=== PATIENT | female | born 1995 | race Two or more races ===

== ENCOUNTER 2024-08-03 11:26 | Emergency (ER) | payer BC, SELFPAY ==
[2024-08-03 11:33] VITALS: BP 136/91; PULSE 89; RESP 18; TEMP 36.7; O2SAT 97
--- NOTE | 2024-08-03 11:42 | PD.EDADULT ---
ED General RME/HPI General Chief complaint: General Adult/Misc Complain Stated complaint: BALL ON R) BUTT, DRAINING PUS, PAINFUL Time Seen by Provider: 08/03/24 11:37 Source: patient Arrival date/time: 08/03/24 11:26 Mode of arrival: ambulatory Limitations: no limitations RME / HPI RME / HPI narrative: 29-year-old female with no past medical history is here today with swelling at the right buttock. She states she received an injection just over a month ago and had firm swelling since. She denies any fevers or chills. Has no abdominal pain, nausea, vomiting. She has no urinary complaints. She states that she had some purulent discharge some weeks ago but has since resolved. She has no primary care provider. She has not been evaluated for this before. She has no other acute complaints or concerns. Related Data Previous Rx's ?Medication ?Instructions ?Recorded sulfamethoxazole 800 1 tab PO BID #14 tabs 08/03/24 mg-trimethoprim 160 mg tablet (Bactrim DS) Allergies Allergy/AdvReac Type Severity Reaction Status Date / Time No Known Allergies Allergy Verified 08/03/24 11:28 Review of Systems Review of Systems Systems Reviewed: All systems reviewed, normal except as documented ED Exam General Limitations: Present no limitations General appearance: Present alert and in no apparent distress Head Head exam: Present atraumatic Eye Eye exam: Present normal appearance, PERRL and EOMI ENT ENT exam: Present normal exam, normal oropharynx and mucous membranes moist Neck Neck exam: Present normal inspection, full ROM and trachea midline Chest Chest inspection: Present normal inspection and symmetric chest wall rise Respiratory Respiratory exam: Present normal lung sounds bilaterally Cardiovascular Cardiovascular exam: Present regular rate, normal rhythm and normal heart sounds Abdominal Exam Abdominal exam: Present soft and normal bowel sounds Extremities Exam Extremities exam: Present normal inspection and full ROM Back Exam Back exam: Present normal inspection and full ROM Neurological Exam Neurological exam: Present alert, oriented X3 and CN II-XII intact Psychiatric Psychiatric exam: Present normal affect and normal mood Skin Skin exam: Present warm, dry, intact, normal color and other (Exam performed with female NAIL MAKING MACHINE SETTER present. There is mild firmness that is approximately 2 cm x 3 cm at the right buttock. There is no warmth or open wounds. There is no fluctuance or drainage. Bedside ultrasound did not reveal any pocket of fluid collection.) Course Quality Measures none Vital Signs Vital signs: Vital Signs Temperature 98.1 F 08/03/24 11:33 Pulse Rate 89 08/03/24 11:33 Respiratory Rate 18 08/03/24 11:33 Blood Pressure 136/91 H 08/03/24 11:33 Pulse Oximetry (%) 97 08/03/24 11:33 Oxygen Delivery Method Room Air 08/03/24 11:33 Discharge Plan Plan Patient Disposition: HOME (Self Care) Patient condition on transfer: Stable Prescriptions/Referrals Prescriptions/Med Rec: New sulfamethoxazole-trimethoprim [Bactrim DS] 800-160 mg tablet 1 tab PO BID Qty: 14 0RF Problem List Clinical Impression: Hematoma, Cellulitis Patient/Caregiver Discharge Instructions Education Materials: ED Cellulitis, ED Hematoma Additional Instructions: Your exam is consistent with a hematoma. This will resolve slowly over time. Apply frequent warm compress. Use Tylenol and ibuprofen as needed for comfort. We are placing on prophylactic antibiotics. Follow-up in clinic as needed. Return here for any worsening or emergent changes. Print Language: Ecuadorean Stand Alone Forms: [employer] Info., Patient Portal Info Letter MDM Narrative [facility] hospital course: 21-year-old female with no past medical history is here today with falling at the right buttock after she had an injection just over a month ago. On exam, patient has no purulent drainage or evidence of abscess. Suspect likely ongoing hematoma. This discussed with patient. She will apply frequent warm compress. We will provide a short course of prophylactic antibiotics. She will follow-up as needed for any worsening or emergent changes. Clinical Information Provided by patient Lab Interpretation Labs: none Imaging Imaging interpretation: none Medication Administration(s) none Diagnosis Differential diagnosis: Hematoma, cellulitis, abscess Most likely dx, and/or detailed dx discussion: Hematoma Dispositon Disposition: Discharge Home
== END 2024-08-03 11:52 | disposition home or self-care (01) ==
LOC: SERX 11:59
PROVIDERS: Emergency Provider Family Medicine
DX: L03.317 Cellulitis of buttock (principal); M79.81 Nontraumatic hematoma of soft tissue; T50.905A Adverse effect of unspecified drugs, medicaments and biological substances, initial encounter
CPT/HCPCS: 99283

== ENCOUNTER 2024-08-09 10:42 | Emergency (ER) | payer BC, SELFPAY ==
[2024-08-09 10:42] VITALS: BMI 39.3
[2024-08-09 11:25] VITALS: BP 145/85; PULSE 84; RESP 18; TEMP 36.7; O2SAT 97
--- NOTE | 2024-08-09 11:42 | EDNOTE_ITS ---
ED Skin Abcess FB-RME/HPI General Chief complaint: Skin/Abscess/Foreign Body Stated complaint: CELLULITIS Time Seen by Provider: 08/09/24 10:52 Arrival date/time: 08/09/24 10:42 This is a 29-year-old female that comes into the emergency room with complaints of right buttock pain possible abscess. Patient was seen here about a week ago and was diagnosed with cellulitis and told to take the antibiotics last visit patient had a bedside ultrasound that did not show any fluctuance or any fluid. Patient states that the swelling around the area is better along with the erythema was better but she still having pain to the right buttock area. Related Data Previous Rx's ?Medication ?Instructions ?Recorded sulfamethoxazole 800 1 tab PO BID #14 tabs mg-trimethoprim 160 mg tablet (Bactrim DS) doxycycline hyclate 100 mg tablet 100 mg PO BID #14 ta bs 08/09/24 hydrocodone 5 mg-acetaminophen 325 1 tab PO Q6H PRN pa in #14 tabs 08/09/24 mg tablet ibuprofen 800 mg tablet 800 mg PO Q6H PRN pain #20 t abs 08/09/24 ondansetron 4 mg disintegrating 4 mg PO Q6H PRN nausea and 08/09/24 tablet vomiting #14 tabs Allergies Allergy/AdvReac Type Severity Reaction Status Date / Time No Known Allergies Allergy Verified 08/11/24 12:43 Review of Systems Review of Systems Systems Reviewed: All systems reviewed, normal except as documented Past Medical History Social History SMOKING STATUS: Never smoker ED Exam Narrative Physical exam: VITAL SIGNS: Reviewed. GENERAL APPEARANCE: Alert and interactive, follows commands, no acute distress HEAD AND FACE: Non-traumatic. ENT: PERRL, conjuctiva pink and clear, eyelid no trauma, Mucous membrane moist. NECK: Supple, nontender, no nuchal rigidity. CHEST: No tenderness, no crepitus, no paradoxical movement, no retractions. LUNGS: breathing even and unlabored HEART: Regular rate, cap refill less than 2 seconds ABDOMEN: Soft, nondistended, no guarding, nontender NEUROLOGICAL: Gross motor function intact sensory function intact, Appropriate for age. MUSCULOSKELETAL: low back nontender, full range of motion. EXTREMITIES: No redness no swelling no skin breakdown on bilateral foot and leg. Distal neurovascular status intact bilateral foot SKIN: Color pink, dry, erythema to mid right buttuck, erythemic with areas of induration Course Quality Measures none Orders Category Date Time Status US soft tissue lower back abd Stat Exams 08/09/24 11:43 Completed Doxycycline [Vibramycin] Med 08/09/24 15:23 Discontinued 100 mg PO X1 ONE HYDROcodone*/APAP 5/325 [[place] 5/325] Med 08/09/24 15:22 Discontinued 1 tab PO X1 ONE Ibuprofen Tab [Motrin Tab] Med 08/09/24 15:22 Discontinued 800 mg PO X1 ONE Lidocaine 1% 20 ml [Xylocaine 1% 20 ML] Med 08/09/24 12:45 Discontinued 10 ml INFL X1 ONE Lidocaine 1% Pf 5 ml [Xylocaine 1% Pf 5 ml] Med 08/09/24 12:32 Discontinued 10 ml INFL X1 ONE Ondansetron Odt [Zofran Odt] Med 08/09/24 15:22 Discontinued 4 mg PO X1 ONE Vital Signs Vital signs: Vital Signs Temperature 98.0 F 08/09/24 11:25 Pulse Rate 84 08/09/24 11:25 Respiratory Rate 18 08/09/24 11:25 Blood Pressure 145/85 H 08/09/24 11:25 Pulse Oximetry (%) 97 08/09/24 11:25 Oxygen Delivery Method Room Air 08/09/24 11:25 Procedures -ED Abscess I/D Site: other (buttuck ) Side (if applicable): right Sedation/analgesia: other (none ) Local Anesthetic: lidocaine 1% Amount of anesthesia used (mL): 6 Technique: incised with #11 blade Amount of fluid expressed (mL): 20 Irrigation: Yes Packing used?: plain (1/2 inch ) Complications: other (none ) Skin / Abscess / Foreign Body MDM Narrative MDM Narrative:: Ultrasound done of right buttuck. Findings: 2.5 x 1.0 x 2.6 cm hypoechoic area consistent with abscess Impression: Soft tissue abscess at the area concern I and D complete. I initially injected around abscess site with lidocaine 1%. I made approximately 1 cm horizontal incision to the area of most fluctuance. Immediately after making incision clearish yellowish fluid came out of the wound. Approximately 20 cc expressed out of wound. The abscess was explored thoroughly and a loculated adhesions were dissected and more purulent material was expressed bleeding was minimal. The wound was then packed with half an inch plain gauze patient tolerated procedure well with no complications. The wound was dressed with sterile 4 x 4 gauze the patient was advised to to come back to the emergency room in 2 days to have packing removed and possibly be repacked. Patient was provided with postprocedure care instructions and return precautions. Although tissue around abscess appears nonerythemic patient does still have induration around the top part of abscess. No fluctuance in this area just induration. Patient will be placed on antibiotics. Doxycycline ordered. will send patient home with pain medication. Patient data External records reviewed:: [facility] previous records Clinical information provided by:: patient Social determinants that could affect healthcare access:: none Patient has the following chronic illnesses:: none How is presenting disease/condition affected by chronic disease/condition?: no chronic disease Evaluation data The following diagnostics were reviewed and interpreted by me:: other (specify) (none) Lab and/or radiology exams considered but not ordered:: none Interpretation Summary: see note Medications / Prescriptions Medications or Prescriptions considered but not ordered:: none Medication administrations:: Medication Administration History Discontinued Medications Hydrocodone Bitart/Acetaminophen (Hydrocodone/Apap 5/325 Tablet) 1 tab PO X1 ONE Stop: 08/09/24 15:23 Last Admin: 08/09/24 15:32 Dose: 1 tab Documented By: ANNA Doxycycline Hyclate (Doxycycline 100 Mg Tablet) 100 mg PO X1 ONE Stop: 08/09/24 15:24 Last Admin: 08/09/24 15:32 Dose: 100 mg Documented By: ANNA Ibuprofen (Ibuprofen Tab 400 Mg Tablet) 800 mg PO X1 ONE Stop: 08/09/24 15:23 Last Admin: 08/09/24 15:32 Dose: 800 mg Documented By: ANNA Lidocaine HCl (Lidocaine Inj Pf 1% 5 Ml Vial) 10 ml INFL X1 ONE Stop: 08/09/24 12:33 Last Admin: 08/09/24 12:35 Dose: Not Given Documented By: ANNA Non-Admin Reason: Cancelled by Provider Lidocaine HCl (Lidocaine Hcl 1% 20 Ml Vial) 10 ml INFL X1 ONE Stop: 08/09/24 12:46 Last Admin: 08/09/24 12:35 Dose: 10 ml Documented By: ANNA Comments: USED BY PROVIDER Ondansetron HCl (Ondansetron Odt 4 Mg Tabrap) 4 mg PO X1 ONE; Protocol Stop: 08/09/24 15:23 Last Admin: 08/09/24 15:31 Dose: 4 mg Documented By: MF see mar Consultations Consultation(s) initiated? (list below): No Diagnosis Skin/Abscess Differential Diagnosis: abscess of skin or subcutaneous tissue, allergic reaction to drug, cellulitis and contact dermatitis Most likely diagnosis given after review of the tests above:: abscess Admission Indicated Admission indicated?: not indicated Admission Request Was there a request for admission?: No Disposition Plan Disposition Plan: Discharge Discharge Attestation Discharge Attestation: The patient and all family members were given an opportunity to ask questions and understood the discharge instructions. Discharge instructions specifically effects, indications for sooner follow up or return to the emergency department, and the expected course of current diagnosis. Patient condition: Stable Discharge Plan Plan Patient Disposition: HOME (Self Care) Patient condition on transfer: Stable Prescriptions/Referrals Prescriptions/Med Rec: New ondansetron 4 mg tablet,disintegrating 4 mg PO Q6H PRN (Reason: nausea and vomiting) Qty: 14 0RF hydrocodone-acetaminophen 5-325 mg tablet 1 tab PO Q6H MDD 4 PRN (Reason: pain) Qty: 14 0RF ibuprofen 800 mg tablet 800 mg PO Q6H PRN (Reason: pain) Qty: 20 0RF doxycycline hyclate 100 mg tablet 100 mg PO BID Qty: 14 0RF No Action sulfamethoxazole-trimethoprim [Bactrim DS] 800-160 mg tablet 1 tab PO BID Qty: 14 0RF Referrals: No Primary/Family,Physician [Primary Care Provider] - In 1 week Problem List Clinical Impression: Abscess Patient/Caregiver Discharge Instructions Discharge Activity: activity as tolerated Education Materials: Abscess Drainage, ED Cellulitis Additional Instructions: Follow up with primary provider in 1-2 days. Come back to ED if symptoms change or worsen. Come back to emergency room in 2 days to have packing changed Print Language: Bengali Stand Alone Forms: [employer] Info., Patient Portal Info Letter PA/ART EDUCATOR Supervising Physician TONNY/ART EDUCATOR Supervising Physician: rylie
--- NOTE | 2024-08-09 11:43 | XR_ITS ---
Examination: Ultrasound soft tissue extremity right buttock Technique: Grayscale sonographic images soft tissue right buttock Date and time: August 09, 2024 1217 hrs. Indications: Painful right buttock region 2 weeks post injection Findings: 2.5 x 1.0 x 2.6 cm hypoechoic area consistent with abscess Impression: Soft tissue abscess at the area concern
[2024-08-09] MEDS: LIDOCAINE HCL 1% 20 ML VIAL 10 ML INFL (12:35)
[2024-08-09] MEDS: ONDANSETRON ODT 4 MG TABRAP PO (15:31)
[2024-08-09] MEDS: IBUPROFEN TAB 400 MG TABLET 800 MG PO (15:32)
[2024-08-09] MEDS: HYDROcodone/APAP 5/325 TABLET 1 TAB PO (15:32)
[2024-08-09] MEDS: DOXYCYCLINE 100 MG TABLET PO (15:32)
[2024-08-09 15:44] VITALS: BP 132/68; PULSE 77; RESP 18; TEMP 36.7; O2SAT 99
== END 2024-08-09 15:45 | disposition home or self-care (01) ==
PROVIDERS: Emergency Provider Family Medicine
DX: L02.31 Cutaneous abscess of buttock (principal)
CPT/HCPCS: 10060; 76705; 99283; J3490; Q0162; A9270

== ENCOUNTER 2024-08-11 12:41 | Emergency (ER) | payer BC, SELFPAY ==
[2024-08-11 12:41] VITALS: BMI 39.3
[2024-08-11 13:20] VITALS: BP 116/82; PULSE 87; RESP 18; TEMP 37.2; O2SAT 97
--- NOTE | 2024-08-11 13:24 | PD.EDSKIN ---
ED Skin Abcess FB-RME/HPI General Chief complaint: General Adult/Misc Complain Stated complaint: CAME TO HAVE PACKING ON R) BUTT REMOVED Time Seen by Provider: 08/11/24 13:12 Arrival date/time: 08/11/24 12:41 29-year-old female presents emergency department today requesting packing removal from right right buttock patient had packing placed here for an abscess Limitations: no limitations Related Data Previous Rx's ?Medication ?Instructions ?Recorded sulfamethoxazole 800 1 tab PO BID #14 tabs 08/03/24 mg-trimethoprim 160 mg tablet (Bactrim DS) doxycycline hyclate 100 mg tablet 100 mg PO BID #14 tabs 08/09/24 hydrocodone 5 mg-acetaminophen 325 1 tab PO Q6H PRN pain #14 tabs 08/09/24 mg tablet ibuprofen 800 mg tablet 800 mg PO Q6H PRN pain #20 tabs 08/09/24 ondansetron 4 mg disintegrating 4 mg PO Q6H PRN nausea and 08/09/24 tablet vomiting #14 tabs Allergies Allergy/AdvReac Type Severity Reaction Status Date / Time No Known Allergies Allergy Verified 08/11/24 12:43 Review of Systems Review of Systems Systems Reviewed: All systems reviewed, normal except as documented Constitutional Constitutional: Reports system reviewed and no additional complaints, except as documented, Denies fever(s) and Denies headache(s) Eyes Eyes: Reports system reviewed and no additional complaints, except as documented and Denies blurry vision ENT Ears, Nose, Mouth, and Throat: Reports system reviewed and no additional complaints, except as documented, Denies headache(s), Denies nasal congestion and Denies nasal discharge Cardiovascular Cardiovascular: Reports system reviewed and no additional complaints, except as documented, Denies chest pain and Denies dyspnea Respiratory Respiratory: Reports system reviewed and no additional complaints, except as documented, Denies chest congestion, Denies cough and Denies dyspnea Gastrointestinal Gastrointestinal: Reports system reviewed and no additional complaints, except as documented and Denies abdominal pain Integumentary/Breasts Skin/Breast: Reports system reviewed and no additional complaints, except as documented, Denies rash and Reports other (Packing in place right buttock) Neurologic Neurologic: Reports system reviewed and no additional complaints, except as documented, Reports as per HPI and Denies headache(s) Past Medical History Social History SMOKING STATUS: Never smoker ED Exam General Limitations: Present no limitations General appearance: Present alert and in no apparent distress Head Head exam: Present atraumatic Eye Eye exam: Present normal appearance, PERRL and EOMI ENT ENT exam: Present normal exam, normal oropharynx and mucous membranes moist Neck Neck exam: Present normal inspection, full ROM and trachea midline Chest Chest inspection: Present normal inspection and symmetric chest wall rise Respiratory Respiratory exam: Present normal lung sounds bilaterally Cardiovascular Cardiovascular exam: Present regular rate, normal rhythm and normal heart sounds Abdominal Exam Abdominal exam: Present soft and normal bowel sounds Extremities Exam Extremities exam: Present normal inspection and full ROM Back Exam Back exam: Present normal inspection and full ROM Neurological Exam Neurological exam: Present alert, oriented X3 and CN II-XII intact Psychiatric Psychiatric exam: Present normal affect and normal mood Skin Skin exam: Present warm, dry, intact and other (Packing in place right buttock) Course Quality Measures none Vital Signs Vital signs: Vital Signs Temperature 98.9 F 08/11/24 13:20 Pulse Rate 87 08/11/24 13:20 Respiratory Rate 18 08/11/24 13:20 Blood Pressure 116/82 08/11/24 13:20 Pulse Oximetry (%) 97 08/11/24 13:20 Oxygen Delivery Method Room Air 08/11/24 13:20 O2 saturation 97% room air within normal limits Skin / Abscess / Foreign Body MDM Narrative MDM Narrative:: 29-year-old female presents emergency department today requesting packing removal from right right buttock patient had packing placed here for an abscess On exam patient has packing in place right buttock Packing is removed in its entirety at this time I do not feel deep abscess Patient has antibiotics and instructed to finish antibiotic Patient discharged home in no distress to follow-up with primary care doctor in the next 24 to 48 hours and for any worsening symptoms to return to the ER immediately Patient data External records reviewed:: [facility] previous records Clinical information provided by:: patient Social determinants that could affect healthcare access:: none Patient has the following chronic illnesses:: None How is presenting disease/condition affected by chronic disease/condition?: no chronic disease Evaluation data The following diagnostics were reviewed and interpreted by me:: other (specify) (N/A) Lab and/or radiology exams considered but not ordered:: Consider not ordered Interpretation Summary: N/A Medications / Prescriptions Medications or Prescriptions considered but not ordered:: N/A Medication administrations:: N/A Consultations Consultation(s) initiated? (list below): No Diagnosis Skin/Abscess Differential Diagnosis: abscess of skin or subcutaneous tissue and cellulitis Most likely diagnosis given after review of the tests above:: Packing right buttock Admission Indicated Admission indicated?: not indicated Admission Request Was there a request for admission?: No Disposition Plan Disposition Plan: Discharge Discharge Attestation Discharge Attestation: The patient and all family members were given an opportunity to ask questions and understood the discharge instructions. Discharge instructions specifically effects, indications for sooner follow up or return to the emergency department, and the expected course of current diagnosis. Patient condition: Stable Discharge Plan Plan Patient Disposition: HOME (Self Care) Discharge Disposition comment: Stable Prescriptions/Referrals Prescriptions/Med Rec: No Action sulfamethoxazole-trimethoprim [Bactrim DS] 800-160 mg tablet 1 tab PO BID Qty: 14 0RF ondansetron 4 mg tablet,disintegrating 4 mg PO Q6H PRN (Reason: nausea and vomiting) Qty: 14 0RF hydrocodone-acetaminophen 5-325 mg tablet 1 tab PO Q6H MDD 4 PRN (Reason: pain) Qty: 14 0RF ibuprofen 800 mg tablet 800 mg PO Q6H PRN (Reason: pain) Qty: 20 0RF doxycycline hyclate 100 mg tablet 100 mg PO BID Qty: 14 0RF Problem List Clinical Impression: Abscess packing removal Patient/Caregiver Discharge Instructions Education Materials: Suture Care Additional Instructions: Please follow up with your primary care doctor in the next 24-48hrs for any worsening symptoms return here immediately Print Language: Divehi Stand Alone Forms: [employer] Info., Patient Portal Info Letter PA/LEGAL ACTIVITY ADJUDICATOR Supervising Physician TONNY/NATTY Supervising Physician: Dr. youngblood
== END 2024-08-11 14:27 | disposition home or self-care (01) ==
LOC: SERX 13:37
PROVIDERS: Emergency Provider Family Medicine
DX: L02.31 Cutaneous abscess of buttock (principal)
CPT/HCPCS: 99282